=== PATIENT | female | born 1940 | race Caucasian/White ===

== ENCOUNTER 2017-07-04 05:22 | Inpatient (IN) | payer MEDICARE ==
[~2017-07-04] VITALS: Ht 162.6 cm; Wt 98.5 kg
[2017-07-04] VITALS: BP 130/74; PULSE 68; RESP 20; TEMP 97; O2SAT 96
[~2017-07-04 05:22] MED LIST: DILT-60 PO; FLUT1INH INH; FLUT1SPR5 EACH NARE; GLIM2TAB PO; LOSA100T PO; METF500T PO; MONT5CHW2 CHEW; NITR0.4S SL
[2017-07-04] MEDS ORDERED: POVIDONE IODINE 5% (ANTISEPSIS KIT) 4 APPLICATIONS EACH NARE PRN (06:15)
[2017-07-04] MEDS ORDERED: LACTATED RINGER'S 1000 ML IV PRN (06:15)
[2017-07-04] MEDS ORDERED: INSULIN HUMAN REGULAR 1,000 UNITS/10 ML VIAL SQ PRN (06:15)
[2017-07-04] MEDS ORDERED: SODIUM CHLORID 0.9% 500 ML IV PRN (06:15)
[2017-07-04] MEDS ORDERED: CHLORHEXIDINE GLUCONATE 2 % 1 PACK (2 CLOTHS) TOPICAL PRN (06:15)
[2017-07-04] MEDS ORDERED: metroNIDAZOLE 500 MG INJ 100 ML IV SCH (07:15)
[2017-07-04] MEDS ORDERED: ONDANSETRON HCL 4 MG/2 ML VIAL IV PUSH SCH (07:15)
[2017-07-04] MEDS ORDERED: SCOPOLAMINE 1.5 MG PATCH T-DERMAL SCH (07:15)
[2017-07-04] MEDS ORDERED: APREPITANT 40 MG CAP PO SCH (07:15)
[2017-07-04] MEDS ORDERED: ACETAMINOPHEN 1000 MG/100 ML 100 ML IV SCH (07:15)
[2017-07-04] MEDS ORDERED: CLINDAMYCIN 900/NS 100 ML IV SCH ×2 (07:15)
[2017-07-04] MEDS ORDERED: ceFAZolin 2 GM PREMIX 0 ML ONE (08:12)
[2017-07-04] MEDS ORDERED: BUPIVACAINE/EPINEPHRINE 0.25% 50 ML VIAL ONE (08:12)
[2017-07-04] MEDS ORDERED: VANCOMYCIN HCL 1000 MG VIAL ONE (08:48)
[2017-07-04] MEDS ORDERED: VANCOMYCIN 500 MG VIAL ONE (08:48)
[2017-07-04] MEDS ORDERED: diphenhydrAMINE HCL ELIXIR 12.5 MG/5 ML CUP PO PRN (11:15)
[2017-07-04] MEDS ORDERED: ENALAPRILAT 1.25 MG/ML VIAL IV PUSH PRN (11:15)
[2017-07-04] MEDS ORDERED: ONDANSETRON HCL 4 MG/2 ML VIAL IV PUSH PRN (11:15)
[2017-07-04] MEDS ORDERED: SODIUM CHLORIDE 0.9% FLUSH 10 ML FLUSH IV FLUSH PRN (11:15)
[2017-07-04] MEDS ORDERED: HYDROmorphone HCL PF 1 MG/ML VIAL IV PUSH PRN (11:15)
[2017-07-04] MEDS ORDERED: diphenhydrAMINE HCL 50 MG/ML VIAL IV PUSH PRN (11:15)
[2017-07-04] MEDS ORDERED: Post-op Orders (for Pharmacy) MISC OTHER ONE (11:15)
[2017-07-04] MEDS ORDERED: ACETAMINOPHEN 325MG/HYDROcodone 7.5MG/15ML UDC PO PRN ×2 (11:15)
[2017-07-04] MEDS ORDERED: *morphine SULFATE 8 MG/ML PERIprocedure ONLY ONE (11:31)
[2017-07-04] MEDS: 1/2 NS + KCL 20 MEQ INJ 1,000 ML IV SCH ×2 (11:45→21:45)
[2017-07-04] MEDS ORDERED: LACTATED RINGER'S 1000 ML INJ 1,000 ML IV ONE (12:14)
[2017-07-04] MEDS ORDERED: ONDANSETRON HCL 4 MG/2 ML VIAL IV PUSH ONE (12:14)
[2017-07-04] MEDS ORDERED: PROPOFOL 200 MG/20 ML AMP IV ONE (12:14)
[2017-07-04] MEDS ORDERED: ePHEDrine/NS 25 MG/5 ML SYR IV ONE (12:14)
[2017-07-04] MEDS ORDERED: GLYCOPYRROLATE 1 MG/5 ML SYRINGE IV PUSH ONE (12:14)
[2017-07-04] MEDS ORDERED: ROCURONIUM INJ 50 MG/5 ML SYRINGE IV PUSH ONE (12:14)
[2017-07-04] MEDS ORDERED: KETOROLAC TROMETHAMINE 60 MG/2 ML (IM) VIAL IM ONE (12:14)
[2017-07-04] MEDS ORDERED: NEOSTIGMINE 3 MG/3 ML SYR IV ONE (12:14)
[2017-07-04] MEDS ORDERED: LIDOCAINE HCL 1% PF 5 ML AMPULE OTHER ONE (12:14)
[2017-07-04] MEDS: METOCLOPRAMIDE HCL 10 MG/2 ML VIAL IV PUSH SCH ×3 (12:57→23:30)
[2017-07-04 14:21] VITALS: BP 177/71; PULSE 65; RESP 18; TEMP 97.8; O2SAT 96
[2017-07-04] MEDS ORDERED: DEXTROSE 50% IN WATER 50 ML VIAL(D50) IV PUSH PRN (15:30)
[2017-07-04] MEDS ORDERED: GLUCAGON 1 MG/ML VIAL OTHER PRN (15:30)
[2017-07-04 16:00] VITALS: BP 186/71; PULSE 66; RESP 18; TEMP 96.1; O2SAT 99
[2017-07-04] MEDS: metroNIDAZOLE 500 MG INJ 100 ML IV SCH ×2 (16:12→23:30)
[2017-07-04] MEDS: ENOXAPARIN SODIUM 40 MG/0.4 ML SYRINGE SQ SCH (16:13)
[2017-07-04 19:59] VITALS: O2SAT 99
[2017-07-04 20:00] VITALS: BP 142/65; PULSE 72; RESP 16; TEMP 96.2; O2SAT 93
[2017-07-04] MEDS: MONTELUKAST SODIUM 5 MG CHEWABLE TAB CHEW SCH (21:00)
[2017-07-04] MEDS: SODIUM CHLORIDE 0.9% FLUSH 10 ML FLUSH IV FLUSH SCH (21:45)
[2017-07-04] MEDS: VANCOMYCIN INJ 1,000 MG in SODIUM CHLOR 0.9% 250 ML INJ 250 ML IV SCH (22:11)
--- NOTE | 2017-07-04 22:56 | MP ---
cc: ESTEVAN FLANAGAN DATE OF : 1940 DATE OF SURGERY: 07/04/2017 PREOPERATIVE DIAGNOSIS Severe obesity with a BMI of 37 complicated by obstructive sleep apnea, type 2 diabetes. POSTOPERATIVE DIAGNOSIS: Severe obesity with a BMI of 37 complicated by obstructive sleep apnea, type 2 diabetes. PROCEDURE Laparoscopic vertical sleeve gastrectomy over 36-Bur[place] bougie. SURGEON Estevan Flanagan MD. TARGET PROTECTION SPECIALIST Mark Cervantes MD. Dr. Cervantes assistance was necessary for the procedure due to the complexity of the procedure. Dr. Cervantes was utilized for manipulation and exposure during the procedure. Dr Cervantes participated in the entire procedure. The aquatics assistant department head provided by [employer] was utilized for managing the camera for the procedure ANESTHESIA General endotracheal anesthesia ESTIMATED BLOOD LOSS Scant FINDINGS: Fatty liver SPECIMEN None. COMPLICATIONS: None. PROCEDURE IN DETAIL The patient was brought to the operating room and placed on the operating table in supine position, bilateral sequential inflation device placed on lower extremities. General anesthesia was instituted. Antibiotics was initiated. The abdomen was prepped and draped sterilely. A point 15 cm distal to the xiphoid in the midline was anesthetized with 0.25% Marcaine with epinephrine. A skin incision was made, 5-mm OptiView port placed under direct vision and pneumoperitoneum created. Under direct vision, three 5-mm left upper quadrant, a 15-mm right upper quadrant, 5-mm right upper quadrant ports placed. Prior to placement of all ports the skin and peritoneum were anesthetized with 0.25% Marcaine with epinephrine. The patient was placed in reverse Trendelenburg position left side up, the Sherrill-Flex retractor was placed. The left lobe of the liver was retracted. The vasculature along the greater curvature of the stomach was using harmonic scalpel starting a distance 5-cm proximal to the pylorus and carried towards the angle of His. The angle of His was taken down bluntly. Posterior ligamentous attachments were sharply . A 36-Bur[place] ViSiGi bougie was placed at the start of the case, was placed on suction. Division of the stomach started 5 cm proximal to the pylorus and carried towards the angle of His to completely excise approximately 80% of the stomach. This was performed using an [place] Flex stapler at the pylorus. The first firing was with a black load, followed by a green load and four gold loads. All staple loads were reinforced with SeamGuard. A distance of 2 cm was left from the angle incisura and the staple line and a distance of 1 cm left from the GE junction and the staple line. The pylorus was then occluded, methylene blue tinged saline was instilled. There was no evidence of extravasation. The gastrocolic ligament was then sutured to the posterior leaflet of the SeamGuard using a 2-0 Vicryl suture in a running manner. Bleeding points were controlled with Evicel. The excised stomach was removed from the peritoneal cavity through the 15-mm port site in an Endopouch. The fascia at the 15-mm port site was approximated with 0 Vicryl suture. The CO2 was then released, all ports were removed, all skin incisions closed with 4-0 Monocryl. The abdominal wall was cleaned. A sterile dressing was placed. The patient was awakened and taken to the recovery room. MD TOSIN Scott/BROCK /5:45 PM /10:45 PM JIMI
[2017-07-05] VITALS (7 sets, daily range): BP systolic 123–170; BP diastolic 49–74; PULSE 65–89; RESP 17–20; TEMP 96.9–100.3; O2SAT 91–97
[2017-07-05] MEDS: METOCLOPRAMIDE HCL 10 MG/2 ML VIAL IV PUSH SCH (05:12)
[2017-07-05] MEDS: 1/2 NS + KCL 20 MEQ INJ 1,000 ML IV SCH ×3 (05:13→15:24)
[2017-07-05] MEDS: SODIUM CHLORIDE 0.9% FLUSH 10 ML FLUSH IV FLUSH SCH ×2 (09:00→21:00)
[2017-07-05] MEDS: PANTOPRAZOLE SOD 40 MG DELAYED RELEASE TAB PO SCH (09:26)
[2017-07-05] MEDS: LOSARTAN 50 MG TAB PO SCH (09:26)
[2017-07-05] MEDS: DILTIAZEM-CD 120 MG CAP ER PO SCH (09:26)
[2017-07-05] MEDS: metroNIDAZOLE 500 MG INJ 100 ML IV SCH (09:29)
[2017-07-05] MEDS: FLUTICASONE 100 MCG/VILANTEROL 25 MCG INHALER INH SCH (09:29)
[2017-07-05] MEDS: VANCOMYCIN INJ 1,000 MG in SODIUM CHLOR 0.9% 250 ML INJ 250 ML IV SCH (09:30)
[2017-07-05 09:36] LABS: AUTOMATED NEUTROPHIL # 5.9 TH/MM3 (1.8-7.7); BASOPHIL % 0.4 % (0.0-2.0); EOSINOPHIL # 0.1 TH/MM3 (0-0.4); EOSINOPHIL % 0.9 % (0.0-4.0); HEMATOCRIT 35.5 % (35.0-46.0); HEMO FLAGS DIFF FINAL; LYMPH % 14.7 % (9.0-44.0); LYMPHOCYTE # 1.1 TH/MM3 (1.0-4.8); MEAN CELL VOLUME 95.5 FL (80.0-100.0); MEAN CORPUSCULAR HEMOGLOBIN 32.9 PG (27.0-34.0); MEAN CORPUSCULAR HGB CONC 34.4 % (32.0-36.0); MONO % 5.6 % (0.0-8.0); NEUT % 78.4 % (16.0-70.0); PLATELET COUNT 121 TH/MM3 (150-450); RED BLOOD COUNT 3.72 MIL/MM3 (4.00-5.30); RED CELL DISTRIBUTION WIDTH 13.5 % (11.6-17.2); WHITE BLOOD COUNT 7.6 TH/MM3 (4.0-11.0)
[2017-07-05 09:54] LABS: BICARBONATE 24.3 MEQ/L (21.0-32.0); MAGNESIUM 1.8 MG/DL (1.5-2.5); POTASSIUM 4.1 MEQ/L (3.5-5.1)
[2017-07-05] MEDS ORDERED: INFLUENZA VIRUS VACCINE (QUADRIVALENT) 0.5 ML SYR IM ONE (10:00)
[2017-07-05] MEDS ORDERED: METOCLOPRAMIDE HCL 10 MG/2 ML VIAL IV PUSH PRN (11:15)
--- NOTE | 2017-07-05 14:26 | HHI.PR ---
Subjective Subjective Notes Sitting up in bed. Pain well controlled. No GI complaints. Tolerating fluids, passing flatus Objective Vitals/I&O Vital Signs Date Time Temp Pulse Resp B/P (MAP) Pulse Ox O2 Delivery O2 Flow Rate FiO2 07/05/17 13:17 93 Nasal Cannula 3.00 07/05/17 12:00 98.0 83 18 135/63 (87) Labs Laboratory Tests Test 07/05/17 08:32 White Blood Count 7.6 Red Blood Count 3.72 Hemoglobin 12.2 Hematocrit 35.5 Mean Corpuscular Volume 95.5 Mean Corpuscular Hemoglobin 32.9 Mean Corpuscular Hemoglobin Concent 34.4 Red Cell Distribution Width 13.5 Platelet Count 121 Mean Platelet Volume 9.5 Neutrophils (%) (Auto) 78.4 Lymphocytes (%) (Auto) 14.7 Monocytes (%) (Auto) 5.6 Eosinophils (%) (Auto) 0.9 Basophils (%) (Auto) 0.4 Neutrophils # (Auto) 5.9 Lymphocytes # (Auto) 1.1 Monocytes # (Auto) 0.4 Eosinophils # (Auto) 0.1 Basophils # (Auto) 0.0 CBC Comment DIFF FINAL Differential Comment Blood Urea Nitrogen 24 Creatinine 1.27 Random Glucose 118 Calcium Level 8.7 Magnesium Level 1.8 Sodium Level 138 Potassium Level 4.1 Chloride Level 106 Carbon Dioxide Level 24.3 Anion Gap 8 Estimat Glomerular Filtration Rate 41 Cardiovascular: Regular Lungs: Clear Abdomen: Post-op tenderness Extremities: Perfused Wound Wound : Wound Location: Abdomen Appearance: Clean & Dry A/P Assessment and Plan 76yo F POD#1 Laparoscopic VSG -Restart home BP meds -Continue with frequent ambulation -Continue to increase fluids as tolerated The exam, history, and the medical decision-making described in the above note were completed with the assistance of the mid-level provider. I reviewed and agree with the findings presented. I attest that I had a [id number] encounter with the patient on the same day, and personally performed and documented my assessment and findings in the medical record. Discharge Planning D/C home either later tonight or tomorrow Annette Toledo [facility] Jul 05, 2017 14:26 Maik Flanagan MD Jul 25, 2017 12:40
[2017-07-05] MEDS: ENOXAPARIN SODIUM 40 MG/0.4 ML SYRINGE SQ SCH (15:35)
[2017-07-05] MEDS: MONTELUKAST SODIUM 5 MG CHEWABLE TAB CHEW SCH (21:00)
[2017-07-06] VITALS: BP 140/64; PULSE 87; RESP 20; TEMP 99.1; O2SAT 91
[2017-07-06] MEDS: 1/2 NS + KCL 20 MEQ INJ 1,000 ML IV SCH (03:03)
[2017-07-06 08:00] VITALS: BP 133/59; PULSE 76; RESP 15; TEMP 96.9; O2SAT 90
[2017-07-06] MEDS: FLUTICASONE 100 MCG/VILANTEROL 25 MCG INHALER INH SCH (09:00)
[2017-07-06] MEDS: SODIUM CHLORIDE 0.9% FLUSH 10 ML FLUSH IV FLUSH SCH (09:00)
[2017-07-06] MEDS: DILTIAZEM-CD 120 MG CAP ER PO SCH (09:04)
[2017-07-06] MEDS: LOSARTAN 50 MG TAB PO SCH (09:04)
[2017-07-06] MEDS: PANTOPRAZOLE SOD 40 MG DELAYED RELEASE TAB PO SCH (09:05)
[2017-07-06 09:27] VITALS: O2SAT 96
[2017-07-06] MEDS ORDERED: ACETAMINOPHEN 650 MG/20.3 ML UDC PO PRN (11:00)
[2017-07-06 12:00] VITALS: BP 126/59; PULSE 71; RESP 16; TEMP 97.6; O2SAT 93
--- NOTE | 2017-07-06 12:23 | HHI.PR ---
Subjective Subjective Notes Sitting up in chair No GI complaints Tolerating fluids Passing flatus Pain well controlled Objective Vitals/I&O Vital Signs Date Time Temp Pulse Resp B/P (MAP) Pulse Ox O2 Delivery O2 Flow Rate FiO2 07/06/17 09:27 96 21 07/06/17 08:00 96.9 76 15 133/59 (83) 07/05/17 13:17 Nasal Cannula 3.00 Cardiovascular: Regular Lungs: Clear Abdomen: Post-op tenderness Extremities: Perfused Wound Wound : Wound Location: Abdomen Appearance: Clean & Dry A/P Assessment and Plan 76yo F POD#2 Laparoscopic VSG -Restart home BP meds -Continue with frequent ambulation -Continue to increase fluids as tolerated The exam, history, and the medical decision-making described in the above note were completed with the assistance of the mid-level provider. I reviewed and agree with the findings presented. I attest that I had a [id number] encounter with the patient on the same day, and personally performed and documented my assessment and findings in the medical record. Discharge Planning D/C home today Annette Toledo Jul 06, 2017 12:23 Maik Flanagan MD Jul 25, 2017 12:41
== END 2017-07-06 13:49 | disposition home or self-care (01) | DRG 621 ==
LOC: HSDI 05:22 → N07A 13:51
PROVIDERS: ADMIT Surgery; ATTEND Surgery
PROC: 0DB64Z3 Excision of Stomach, Percutaneous Endoscopic Approach, Vertical (ICD-10-PCS; principal; 2017-07-04 09:25)
DX: E66.01 Morbid (severe) obesity due to excess calories (principal); K76.0 Fatty (change of) liver, not elsewhere classified; E11.9 Type 2 diabetes mellitus without complications; Z79.84 Long term (current) use of oral hypoglycemic drugs; I10 Essential (primary) hypertension; Z68.37 Body mass index [BMI] 37.0-37.9, adult; G47.33 Obstructive sleep apnea (adult) (pediatric)
CPT/HCPCS: 80048; 82948; 83735; 85025; 90471; 90686; 94150; G0008; J0131; J0690; J1650; J1885; J2270; J2405; J2710; J2765; J3010; J3370; J7050; J7120; J8501; Q2038